=== PATIENT | male | born 1970 | race Caucasian/White ===

== ENCOUNTER 2019-09-26 08:39 | Emergency (ER) | payer BC ==
--- NOTE | 2019-09-26 09:56 | UC ---
Skin Complaint HPI - HPI Summary HPI Summary: Patient is a 48-year-old male presenting with left upper leg redness, warmth, and pain. Patient states that he went hunting Tuesday night, went to sleep, and woke up Tuesday feeling like he got punched in the leg. States he went to work on Tuesday and by the time he came home he noticed redness of his leg continued to spread through yesterday and today. States it is worse today and very tender to touch. She is unsure of any insect bite or trauma to the area. Denies fever, chills, nausea, vomiting. - History of Current Complaint Chief Complaint: UCLowerExtremity Stated Complaint: PAIN IN GROIN AREA Hx Obtained From: Patient Onset/Duration: Gradual Onset, Lasting Days Current Severity: Severe Pain Intensity: 8 Pain Scale Used: 0-10 Numeric - Allergy/Home Medications Allergies/Adverse Reactions: Allergies Allergy/AdvReac Type Severity Reaction Status Date / Time No Known Allergies Allergy Verified 09/26/19 08:58 Home Medications: Home Medications Ibuprofen 600 mg PO ONCE PRN 09/26/19 [History Confirmed 09/26/19] PMH/Surg Hx/FS Hx/Imm Hx Previously Healthy: Yes - Surgical History Surgical History: Yes Surgery Procedure, Year, and Place: rt knee - Family History Known Family History: Positive: Non-Contributory - Social History Alcohol Use: Occasionally Substance Use Type: None Smoking Status (MU): Never Smoked Tobacco Review of Systems All Other Systems Reviewed And Are Negative: Yes Constitutional: Positive: Negative. Negative: Fever, Chills Skin: Positive: Rash Respiratory: Positive: Negative Cardiovascular: Positive: Negative Gastrointestinal: Positive: Negative. Negative: Vomiting, Nausea Musculoskeletal: Positive: Negative Neurological: Positive: Negative Physical Exam Triage Information Reviewed: Yes Appearance: Well-Appearing, No Pain Distress, Well-Nourished Vital Signs: Initial Vital Signs Temp 98.7 F 09/26/19 08:54 Pulse 89 09/26/19 08:54 Resp 18 09/26/19 08:54 BP 167/110 09/26/19 08:54 Pulse Ox 100 09/26/19 08:54 Vital Signs Reviewed: Yes Eyes: Positive: Conjunctiva Clear ENT: Positive: Hearing grossly normal Neck: Positive: Supple Respiratory Exam: Normal Respiratory: Positive: Lungs clear, Normal breath sounds, No respiratory distress Cardiovascular Exam: Normal Cardiovascular: Positive: RRR, Pulses Normal. Negative: Distal Pulses Weak, Distal Pulses Absent Musculoskeletal Exam: Normal Neurological: Positive: Alert Psychological: Positive: Age Appropriate Behavior Skin: Positive: Other - large area of erythema and warmth noted over anteromedial left upper thigh. no clear demarcation. central induration noted. no drainage or fluctuance. Course/Dx - Course Course Of Treatment: I treated the patient with a shot of 1g Rocephin here. Prescribed Bactrim for home. Outline was drawn around redness. Educated him on cellulitis. Instructed him to go to the ED with symptoms worsen including rapidly spreading redness. Patient voiced understanding and agreed with the treatment plan. Patient is without s/s of systemic infection and in no pain distress. - Diagnoses Provider Diagnosis: Cellulitis of left thigh Discharge ED - Sign-Out/Discharge Documenting (check all that apply): Patient Departure All imaging exams completed and their final reports reviewed: No Studies - Discharge Plan Condition: Stable Disposition: HOME Prescriptions: Sulfamethox/Trimethoprim DS* [Bactrim DS 800/160 TAB*] 1 tab PO BID #20 tab Referrals: [facility] [Outside] - If Needed [facility] [Outside] - If Needed Additional Instructions: You had a shot of antibiotics here for your skin infection. Continue to take Bactrim as prescribed for the treatment of your skin infection. Keep the area clean and dry. Go to the emergency room if you experience worsening symptoms, including fever, increasing redness and warmth to the area, drainage, or nausea and vomiting. - Billing Disposition and Condition Condition: STABLE Disposition: Home
[2019-09-26] MEDS ORDERED: cefTRIAXone VIAL(*) 1,000 MG VIAL IM ONE (10:12)
[2019-09-26] MEDS ORDERED: Lidocaine 1% MPF ** 5 ML VIAL IM ONE (10:15)
== END 2019-09-26 10:31 | disposition home or self-care (01) ==
LOC: UCEAST 08:39
DX: L03.116 Cellulitis of left lower limb (principal)
CPT/HCPCS: 99202; G0463; J0696